=== PATIENT | male | born 1975 | race Caucasian/White ===

== ENCOUNTER 2017-03-01 06:05 | Inpatient (IN) ==
[2017-03-01] MEDS ORDERED: CeFAZolin Pre 2,000 MG/100 ML 2,000 MG/100 ML BAG IVPB ONE (06:29)
[2017-03-01] MEDS ORDERED: Vancomycin 1,250 MG in D5% in Water 250 ML IVPB ONE ×2 (06:29→13:00)
[2017-03-01] MEDS ORDERED: Lidocaine -MPF 1% 2 ML VIAL ID ONE (06:29)
[2017-03-01] MEDS ORDERED: Albuterol 2.5 MG/3 ML NEBULIZER ONE (06:37)
[2017-03-01] MEDS ORDERED: Albuterol 2.5 MG/3 ML NEBULIZER IH ONE (06:39)
[2017-03-01] MEDS ORDERED: *HR* Propofol 200 MG/20 ML VIAL IVP ONE (06:54)
[2017-03-01] MEDS ORDERED: *HR* Midazolam HCl 2 MG/2 ML VIAL ONE (06:55)
[2017-03-01] MEDS ORDERED: *HR* FentaNYL (PF) 100 MCG/2 ML VIAL ONE (06:55)
[2017-03-01] MEDS ORDERED: Lidocaine -MPF 4% 5 ML AMPUL ONE (07:14)
[2017-03-01] MEDS ORDERED: *HR* HYDROmorphone (PF) 1 MG/ML SYRINGE IVP PRN (07:16)
[2017-03-01] MEDS ORDERED: *HR* Labetalol 20 MG/4 ML SYRINGE IVP PRN (07:16)
[2017-03-01] MEDS ORDERED: Metoclopramide 10 MG/2 ML VIAL IVP ONE (07:16)
[2017-03-01] MEDS ORDERED: *HR* Promethazine 25 MG/ML VIAL IVP PRN (07:16)
[2017-03-01] MEDS ORDERED: Famotidine 20 MG/2 ML VIAL IVP ONE (07:16)
[2017-03-01] MEDS ORDERED: Acetaminophen IV 1,000 MG/100 ML INFUS..BTL IVPB ONE (07:17)
[2017-03-01] MEDS ORDERED: Gabapentin 300 MG CAPSULE PO STA (07:18)
[2017-03-01] MEDS ORDERED: Heparin 1,000 UNITS/500 mL NS 500 ML ONE (07:19)
[2017-03-01] MEDS ORDERED: Heparin 1,000 UNITS/500 mL NS 1,000 ML ONE (07:21)
[2017-03-01] MEDS ORDERED: Vancomycin 1,000 MG VIAL ONE (07:21)
--- NOTE | 2017-03-01 07:21 | Anesthesia Evaluation PreOp ---
Date of Encounter: 03/01/17 Time of Encounter: 07:11 - Past History Planned Operation: L-femoral endarterectomy, angioplasty, possible stent Cardiac History: CHF (hospitalization 07/22/2014), HTN (maintained on Carvedilol , Lisinopril), Hyperlipidemia (maintained on ATorvastatin), Other ( Claudication. ECHO 08/2014 LVEF= 50%. 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 HX Other Medical History: Renal (stage II CKD), Diabetes Type II (maintained on Lantus), GERD (maintained on Pantoprazole), Other (BPH maintained on Flomax) Anesthesia History: No Prior Anesthetic Complications, Past Anesthesia (Appy, B- knee scopes, oral surgery/dental extractions) Alcohol Use: none Drug use: none, other Medications and Allergies Aspirin 81 mg PO DAILY 03/15/15 [History] Carvedilol [Coreg] 3.125 mg PO BID 03/15/15 [History] Lisinopril [Zestril] 20 mg PO DAILY 03/15/15 [History] Acetaminophen [Tylenol] 1,000 mg PO Q6HR PRN #90 tablet 01/31/17 [Rx] Atorvastatin Calcium [Lipitor] 10 mg PO DAILY 01/31/17 [History] Cholecalciferol (Vitamin D3) [Vitamin D3] 5,000 unit PO DAILY 01/31/17 [History] Pantoprazole Sodium [Protonix] 40 mg PO DAILY 01/31/17 [History] Tamsulosin [Flomax] 0.4 mg PO DAILY 01/31/17 [History] Allergies nicotine patch Adverse Reaction (Uncoded 04/07/15 13:18) Rash - Meds/Allergy Pre-op Review Medications Reviewed: Yes Allergies Reviewed: Yes Beta Blockers on Current Med List: No Anesthesia Results - Labs Laboratory Tests 02/27/17 02/27/17 02/27/17 16:32 16:32 16:32 WBC Hgb Hct Plt Count PT 11.5 INR 1.1 APTT 35.4 Sodium 139 Potassium 4.0 Chloride 103 Carbon Dioxide 27 BUN 16 Creatinine 1.28 H Est GFR (Non-Af Amer) > 60 Glucose 159 H Est Mean Plasma Glucose 148 Hemoglobin A1c 6.8 H 02/27/17 16:32 WBC 8.0 Hgb 15.6 Hct 47.1 Plt Count 210 PT INR APTT Sodium Potassium Chloride Carbon Dioxide BUN Creatinine Est GFR (Non-Af Amer) Glucose Est Mean Plasma Glucose Hemoglobin A1c - Imaging EKG: image reviewed (84bpm SR) Anesthesia Exam O2 Sat Height 1.83 m Height 1.83 m Weight 85.275 kg Weight 85.275 kg O2 Sat by Pulse Oximetry 96 Vital Signs Temp Pulse Resp BP Pulse Ox 98.1 F 78 18 176/100 96 03/01/17 06:24 03/01/17 06:24 03/01/17 06:24 03/01/17 06:24 03/01/17 06:24 Height: 5'11" Weight: 190# NPO (# of Hours): MNOc - HEENT Pupil (Motor): Pupils equal, EOMI Mallampati: II Teeth: Edentulous (upper), Poor dentition (Prevalent gumline dz) Oral Opening: Greater than 3 - WRAP TURNER LOC: Oriented WRAP TURNER Motor: Normal RUE, Normal LUE, Normal RLE, Normal LLE, Normal Face WRAP TURNER Sensory: Normal: RUE, LUE, RLE, LLE, Face - Cardiac Rhythm: Regular Murmur: None - Pulmonary Breath Sounds: bilateral Clear Respiratory Effort: Symmetrical Anesthesia Assess/Plan ASA Score: 3 (PVD,Smoker, DM, HTN, Chol, Stage II CKD) Modified [place] Scale for Level of Consciousness: Cooperative, oriented, and tranquil Anesthetic Plan: General Monitoring Plan: Standard Monitors, A-Line Recovery Plan: PACU Anes Supervising Prov Stmt: Pt seen/evaluated, R&B Discussed, questions answered and consent obtained. Janice Dyson MD
[2017-03-01] MEDS: Ringers Solution, Lactated 1,000 ML IVC SCH ×2 (07:33→09:46)
--- NOTE | 2017-03-01 07:33 | History & Physical Report ---
Date of Encounter: 03/01/17 Time of Encounter: 07:25 24 Hour HP Update - Instructions Instructions: If the History and Physical is less than 30 days old and was completed prior to A.M. admission and or procedure and has NOT been updated on calendar day of procedure please complete this update prior to performing procedure. - Update Patient reports changes in Medical Condition: No Changes in examination, assessment, or condition: No Changes in Medication: No Preop tests/diagnostics Reviewed: Yes Surgery Remains Indicated: Yes Consent for Planned Operative Procedure(s) Verified: Yes - Pre-Operative Checklist Preoperative Checklist Indicated: Yes Prophylactic Antibiotic Ordered: Yes (vancomycin due to MRSA risk) Home Medications Include Beta Suresh: Yes Beta Suresh Taken Today (Day of Surgery): Yes Beta Suresh Taken Yesterday (Day Prior to Surgery): Yes Is VTE Prophylaxis Indicated?: Yes
[2017-03-01] MEDS ORDERED: EPHEDrine 50 MG/ML VIAL ONE (08:56)
[2017-03-01] MEDS ORDERED: *HR* Heparin 5,000 UNIT/ML VIAL ONE (09:22)
[2017-03-01] MEDS ORDERED: *HR* HYDROmorphone 2 MG/ML SYRINGE ONE (11:05)
--- NOTE | 2017-03-01 11:21 | Operative Note ---
Date of procedure: 03/01/17 Pre-op diagnosis: Peripheral vascular disease with disabling claudication Post-op diagnosis: same Procedure: 1. Left lower extremity angiogram. 2. Left superficial femoral and popliteal artery angioplasty with 4 x 60mm balloon. 3. Left Iliofemoral endarterectomy. 4. Left deep femoral artery endarterectomy. Complications: None Anesthesia: UMM Surgeon: Robbie Bagley Estimated blood loss (cc): 100 Specimen: Left lower extremity plaque Condition: stable Disposition: PACU Procedure in Detail: Indications: The patient is a 41 year old male with severe disabling claudication at short distances. He was found to have severe peripheral vascular disease with multiple iliac, femoral and popliteal stenoses. Due to the extent of his disease and the severity of his symptoms, revascularization was recommended for relief. Procedure: The patient was identified in the preoperative area. The risks, benefits, and alternatives of procedure were discussed and all questions were answered. He was taken to the operating room and placed in supine position on the operating room table. After the induction of general endotracheal anesthesia, he was cleaned and draped in normal sterile fashion. An oblique incision was made along the left groin sharply. Hemostasis was obtained with electrocautery. Through a process of blunt and sharp electrocautery dissection , the skin and subcutaneous tissues were incised and the mid to distal external iliac artery was dissected underneath the inguinal ligament and a vessel loop was passed around it. The common femoral artery, deep femoral artery and superficial femoral artery were dissected circumferentially and surrounded with vessel loops. The patient received 5000 units of heparin intravenously to maintain adequate anticoagulation. After waiting for the heparin to circulate, the vessels were occluded. A longitudinal arteriotomy was made sharply into the common femoral artery. It was extended under the inguinal ligament into the external iliac artery proximally. It was then extended into the superficial femoral artery distally. Using a dental freer, an endarterectomy was performed from the external iliac artery through the common femoral artery. The plaque was irregular and firm. Proximally, the lumen became patent without significant stenosis. The plaque was excised sharply and no elevated flaps were noted at the endpoint. Distally, the plaque was excised at the deep femoral artery. Release of the vessel loop on the deep femoral artery revealed minimal retrograde flow. Using a dental freer, a deep femoral endarterectomy was performed. The plaque was circumferentially excised from the deep femoral artery using an eversion technique. Release of the loop revealed significant retrograde flow. The lumen was irrigated with heparinzed saline. The deep femoral artery vessel loop was thentightened. A 6 chadian sheath was then advanced over a wire into the superficial femoral artery. An angiogram revealed a left superficial femoral and popliteal artery stenosis measuring up to 90%. Angioplasty was performed with a 4 x 60mm balloon. Multiple inflations were required. A completion angiogram revealed no hemodynamically significant residual stenosis. The vessel was flushed with heparinized saline, the sheath, wire and balloon were removed and the vessel loop was tightened. A bovine pericardial patch was cut to fit the defects in the external iliac, common femoral and superficial femoral arteries. The patch was sutured in place with running 6-0 Prolene. Prior to completing the patch anastomosis, each vessel was flushed individually, then reoccluded. Heparinized saline was infused into the lumen. The patch was completed and flow was restored. Thrombin and Gelfoam were used to aid in hemostasis. Polyphasic signal was noted distal to the distal end of the patch as well as the posterior tibial artery. Wound was irrigated with antibiotic-containing saline. Platelet-rich and platelet-poor plasma were infused into the wound. The wounds were reapproximated with layer of 2-0 Vicryl followed by two layers of 3-0 and Vicryl 3-0 Monocryl in the subcuticular layer. Sterile dressings were applied. The patient was extubated and taken to recovery room in stable condition.
--- NOTE | 2017-03-01 12:00 | Anesthesia Evaluation Post Op ---
Date of Encounter: 03/01/17 Time of Encounter: 11:55 - Lungs Lungs: Clear Ascult./Percussion - Airway Airway: Non-obstructed - Cardiovascular Regular Rate, Baseline Rhythm - Mental Status Mental Status: Alert & Oriented, Answers Appropriately - Pain Pain Scale: 1 - Nausea Vomiting Nausea Vomiting: Not Present - Hydration Hydration: Tolerates oral liquids, Ice chips, Dobson catheter - Discharge PostOp Status: Transfer Patient to floor
[2017-03-01] MEDS ORDERED: *HR* OxyCODONE Immed Rel 5 MG TABLET PO PRN (12:08)
[2017-03-01] MEDS ORDERED: Ondansetron 4 MG/2 ML VIAL IVP PRN (12:08)
[2017-03-01] MEDS ORDERED: Naloxone 0.4 MG/ML INJ IVP PRN (12:08)
[2017-03-01] MEDS ORDERED: Acetaminophen 325 MG TABLET PO PRN (12:08)
[2017-03-01] MEDS ORDERED: *HR* Morphine 2 MG/ML SYRINGE IVP PRN (12:08)
[2017-03-01] MEDS: *HR* HYDROcodone/Acet 5/325 mg TABLET PO PRN ×2 (12:51→23:50)
[2017-03-01] MEDS: *HR* Metoprolol 5 MG/5 ML VIAL IVP SCH ×3 (13:47→23:50)
[2017-03-01] MEDS: ceFAZolin 2,000 MG in D5% in Water 100 ML IVPB SCH ×2 (15:32→23:51)
[2017-03-01] MEDS: *HR* Labetalol 20 MG/4 ML SYRINGE IVP PRN (18:41)
[2017-03-01] MEDS ORDERED: Lisinopril 20 MG TABLET PO SCH (21:00)
[2017-03-01] MEDS ORDERED: Aspirin 81 MG TAB.CHEW PO SCH (21:00)
[2017-03-01] MEDS ORDERED: Cholecalciferol (D-3) 1,000 UNIT TABLET PO SCH (21:00)
[2017-03-02 05:26] LABS: Basophils % 0.2 %; Eosinophils # 0.1 K/mcL (0.0-0.6); Eosinophils % 0.7 %; Hematocrit 47.5 % (37.5-50.1); Hemoglobin 15.7 g/dL (12.9-16.9); Immature Granulocytes % 0.4 % (0-4); Lymphocytes # 2.3 K/mcL (0.6-4.6); Lymphocytes % 16.4 %; Mean Corpuscular HGB Conc 33.1 g/dL (31.6-35.5); Mean Corpuscular Hemoglobin 28.2 pg (28.0-33.3); Mean Corpuscular Volume 85.3 fL (83.0-100.0); Mean Platelet Volume 9.9 fL (9.4-12.4); Monocytes # 0.7 K/mcL (0.0-1.3); Monocytes % 4.8 %; Neutrophils # 10.7 K/mcL (1.6-8.9); Platelet Count 222 K/mcL (140-400); Red Blood Count 5.57 M/mcL (4.19-5.50); Red Cell Distribution Width 12.8 % (11.5-14.5); Segmented Neutrophils % 77.5 %
[2017-03-02 05:34] LABS: BUN/Creatinine Ratio 12 (6-26); Blood Urea Nitrogen 15 mg/dL (8-26); Calcium 9.9 mg/dL (8.6-10.8); Carbon Dioxide 28 mEq/L (19-29); Chloride 101 mEq/L (98-109); Glucose 118 mg/dL (70-99); Osmolality,Calculated 288 (280-300); Potassium 4.4 mEq/L (3.5-4.5); Sodium 138 mEq/L (136-145); eGFR For African Americans > 60 (> 60); eGFR For Non-African Americans > 60 (> 60)
[2017-03-02] MEDS ORDERED: *HR* Heparin 5,000 UNIT/ML VIAL SQ SCH ×2 (06:00)
[2017-03-02] MEDS: *HR* Metoprolol 5 MG/5 ML VIAL IVP SCH (06:06)
--- NOTE | 2017-03-02 06:29 | Discharge Summary ---
Date of Encounter: 03/02/17 Time of Encounter: 09:00 - Discharge Diagnosis (1) Atherosclerosis of [place] arteries of extremities with intermittent claudication, bilateral legs Priority: Primary Status: Chronic Comments: The patient is post operative day #1 after a left iliac and femoral endarterectomy and left superficial femoral and popliteal artery angioplasty. He is feeling well. He has palpable pedal pulses on the left. He will be discharged today. He will follow-up in clinic for further evaluation. (2) Tobacco abuse Priority: Secondary Status: Chronic (3) Mixed hyperlipidemia Priority: Secondary Status: Chronic (4) Essential hypertension Priority: Secondary Status: Chronic (5) Chronic kidney disease, stage III (moderate) Priority: Secondary Status: Chronic - Discharge Medications Prescriptions: OxyCODONE/APAP 5/325 [Percocet 5/325 MG] 1 each PO Q4HR PRN #25 tablet PRN Reason: postoperative pain Home Medications: Aspirin 81 mg PO HS 03/15/15 [History] Carvedilol [Coreg] 3.125 mg PO BID 03/15/15 [History] Cholecalciferol (Vitamin D3) [Vitamin D3] 5,000 unit PO HS 01/31/17 [History] Pantoprazole Sodium [Protonix] 40 mg PO HS 01/31/17 [History] Tamsulosin [Flomax] 0.4 mg PO HS 01/31/17 [History] Atorvastatin [Lipitor] 10 mg PO HS 03/01/17 [History] Lisinopril [Zestril] 20 mg PO HS 03/01/17 [History] OxyCODONE/APAP 5/325 [Percocet 5/325 MG] 1 each PO Q4HR PRN #25 tablet 03/02/17 [Rx] Allergies/Adverse Reactions: No Known Allergies Allergy (Verified 03/06/17 18:31) Date of admission: 03/01/17 12:33 Primary care physician: Benjamin Orta Jr, MD Procedure(s) Performed: Left lower extremity endarterectomy and angioplasty. Discharging clinician: Robbie Bagley Anticipated date of discharge: 03/02/17 - Patient Status Disposition: Home, Self-Care Condition: Good Functional capacity at discharge: independent ambulation Overall status at discharge: patient is back to baseline - Discharge Instructions Instructions: Oxycodone/Acetaminophen (By mouth), How to Stop Smoking (DC), Peripheral Vascular Angioplasty (DC) Follow Up With: Robbie Bagley MD [Partnered Physician] - 04/10/17 1:50 pm Benjamin Orta Jr, MD [Primary Care Provider] - 03/05/17 3:30 pm Additional Instructions: MAY REMOVE BANDAGE AND SHOWER ON 03/03/17. WASH WOUND GENTLY AND PAT TO DRY. APPLY DRY GAUZE TO WOUND DAILY FOR 7 DAYS. NO TUB BATHS OR SWIMMING UNTIL 03/27/17. CALL DR. BAGLEY AT [phone] WITH QUESTIONS OR CONCERNS. RISK FACTORS: STOP SMOKING: If you smoke, STOP. Smoking or tobacco use significantly increases your risk of heart disease because nicotine causes the arteries to narrow or constrict. It also causes fats to stick to the artery. Your chances of having a heart attack are greatly increased if you continue to smoke. For more information, call the education line for smoking cessation 4-246-ZHJVCSF EAT A LOW FAT/CHOLESTEROL/SODIUM DIET: This diet may help reduce your chances of having a heart attack. LIFTING: Avoid lifting anything more than 10 pounds for 5-7 days Prior to straining, laughing, sneezing and/or coughing, apply manual pressure directly over insertion site. ACTIVITY: You may walk or climb stairs as tolerated You can resume sexual activity as tolerated In general, you are encouraged to engage in a minimum of 30 minutes or more of moderate intensity physical activity, such as brisk walking, daily or at least 3 -4 times weekly BATHING Do not submerge the site into water (bath tub, hot tub, swimming pool) for 1 week. This can be a source for infection into the blood stream. You may shower after 24 hours SITE CARE: Keep the site clean and dry. Clean gently and pat dry. Return to work as instructed per your physician Resume driving as instructed per physician Keep all scheduled follow up appointments Resume medications as instructed Take your meds as directed. STROKE (CVA) Risk factors for a stroke are: Age, cigarette smoking, diabetes, excessive alcohol consumption, family history, high blood pressure, overweight, physical inactivity, prior stroke, heart attack, diagnosis of carotid artery stenosis or other artery disease. Warning signs: Sudden numbness or weakness of the face, arm or leg; especially on one side of the body, sudden confusion, trouble speaking or understanding, sudden trouble seeing in one or both eyes, sudden trouble walking, dizziness, loss of balance or coordination, sudden severe headache with no cause. Call 911 or go to the Emergency Room. BLEEDING: Although the risk of bleeding is minimal, it can happen. If you have any bleeding from the site, apply firm pressure above the puncture site for 10-15 minutes. If the bleeding does not stop, continue manual pressure and call 911 Contact your physician if: You develop a fever greater than 101 degrees Fahrenheit Your site becomes reddened or has any drainage You have an increase in pain or burning at the site or if a large knot forms at the site. If you experience chest pain, shortness of breath, dizziness, or extreme tiredness, stop the activity and rest. Please notify your physicians office if you experience any of these symptoms and they are not relieved by rest please call 911! coninue to use the incentive spirometer at least 6 times daily - Diet and Activity Activity: increase activity as tolerated Diet: advance to your usual diet - Hospital Course Hospital course: Mr. Tang is a 41 year old male with hypertension, hyperlipidemia, chronic kidney disease and tobacco abuse who was found to have severe disabling claudication. He was admitted on 03/01/17 and underwent a left lower extremity endartectomy and angioplasty. He tolerated the procedure well and was discharged on postoperative day #1 in stable condition without complications. Time spent discussing smoking cessation with patient: 3 to 10 minutes - Time Spent with Patient Total time spent providing and/or coordinating discharge services: Exam Vital Signs, Last 4 Hours Temp Pulse Resp Pulse Ox 03/02/17 05:19 97.7 F 80 17 98 General: Present: Conversant, No Apparent Distress HEENT: Present: Pupils equal Cardiac: Present: Reg Rate and Rhythm Lungs: Present: Normal Breath Sounds Neuro: Present: Alert and responsive, No focal deficits noted Abdomen: Present: Soft, Non-tender Vascular: Present: Pulse, diminished (right), Pulse, normal (left), Surgical incisions (clean, dry and intact without erythema or drainage) - VTE Documentation of Mechanical Device: Intermittent pneumatic compression device
[2017-03-02] MEDS: *HR* Labetalol 20 MG/4 ML SYRINGE IVP PRN (10:02)
[2017-03-02 10:06] VITALS: BP 157/94
== END 2017-03-02 11:42 | disposition home or self-care (01) | DRG 169 ==
LOC: SAMDAY 06:05 → 2NNU 12:33
PROVIDERS: ADMIT Surgery; ATTEND Surgery

== ENCOUNTER 2019-03-20 06:29 | Observation (INO) ==
[2019-03-20] MEDS ORDERED: CeFAZolin Syr 2,000MG/20 ML 2,000 MG/20 ML SYRINGE IVPB ONE (07:02)
[2019-03-20] MEDS ORDERED: Albuterol 2.5 MG/3 ML NEBULIZER IH ONE ×2 (07:02→07:06)
[2019-03-20] MEDS ORDERED: Famotidine 20 MG/2 ML VIAL IVP ONE (07:06)
[2019-03-20] MEDS ORDERED: *HR* HYDROmorphone (PF) 1 MG/ML SYRINGE IVP PRN (07:06)
[2019-03-20] MEDS ORDERED: *HR* OxyCODONE Immed Rel 5 MG TABLET PO PRN ×3 (07:06→11:48)
[2019-03-20] MEDS ORDERED: Ondansetron 4 MG/2 ML VIAL IVP ONE (07:06)
[2019-03-20] MEDS ORDERED: *HR* Promethazine 25 MG/ML VIAL IVP PRN (07:06)
[2019-03-20] MEDS ORDERED: Acetaminophen IV 1,000 MG/100 ML INFUS..BTL IVPB ONE (07:06)
[2019-03-20] MEDS ORDERED: *HR* Labetalol 20 MG/4 ML SYRINGE IVP PRN ×2 (07:06→11:48)
--- NOTE | 2019-03-20 07:08 | Anesthesia Evaluation PreOp ---
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 Other Medical History: Renal (KD stage 3), Diabetes Type II, GERD Anesthesia History: No Prior Anesthetic Complications, Past Anesthesia (previous grade 1 view, appy, knee scope, L fem endarterectomy) Alcohol Use: none Drug use: marijuana Medications and Allergies Acarbose [Precose] 25 mg PO TIDWM 03/20/19 [History] Amitriptyline [Elavil] 10 mg PO HS 03/20/19 [History] Atorvastatin [Lipitor] 40 mg PO DAILY 03/20/19 [History] Carvedilol [Coreg] 6.25 mg PO BID 03/20/19 [History] Cholecalciferol (D-3) [Vitamin D] 5,000 unit PO DAILY 03/20/19 [History] Clopidogrel [Plavix] 75 mg PO DAILY 03/20/19 [History] Dulaglutide [Trulicity] 1.5 mg SQ WE 03/20/19 [History] Glimepiride [Amaryl] 4 mg PO BID 03/20/19 [History] Lisinopril [Zestril] 20 mg PO DAILY 03/20/19 [History] Pantoprazole Sodium [Protonix] 40 mg PO DAILY 03/20/19 [History] Tamsulosin HCl [Flomax] 0.4 mg PO DAILY 03/20/19 [History] Tizanidine HCl 4 mg PO TID PRN 03/20/19 [History] Allergy/AdvReac Type Severity Reaction Status Date / Time nicotine Allergy Swelling Verified 03/20/19 06:59 of Lip/Tongue/Throat - Meds/Allergy Pre-op Review Medications Reviewed: Yes Allergies Reviewed: Yes Beta Blockers on Current Med List: Yes (carvedilol) If Beta Blockers taken, Date/Time (Last Dose taken): 329 Anesthesia Results - Labs Laboratory Tests 03/03/19 03/03/19 03/03/19 17:37 17:37 17:37 WBC Hgb Hct Plt Count PT 10.9 INR 1.0 APTT 33.5 Sodium 137 Potassium 4.5 Chloride 102 Carbon Dioxide 26 BUN 23 H Creatinine 1.62 H Est GFR (Non-Af Amer) 46 L Hemoglobin A1c 9.5 H 03/03/19 17:37 WBC 7.3 Hgb 16.2 Hct 48.4 Plt Count 202 PT INR APTT Sodium Potassium Chloride Carbon Dioxide BUN Creatinine Est GFR (Non-Af Amer) Hemoglobin A1c - Imaging EKG: report reviewed Additional studies: stress 03/2018 Impression: Perfusion study is negative for ischemia or infarct. Reversible mild perfusion defect in basal/mid inferoseptal wall is likely an artifact. Stress LVEF 58 %. No ischemic stress ECG findings. No abnormal hemodynamic changes during stress test. Anesthesia Exam Vital Signs/O2 Sat/Glucose, Most Recent Temp Pulse Resp BP Pulse Ox 97.8 F 90 18 144/94 99 03/20/19 06:55 03/20/19 06:55 03/20/19 06:55 03/20/19 06:55 03/20/19 06:55 Blood Glucose* 157 Weight: 97 kg NPO (# of Hours): > 8 hr - HEENT Pupil (Motor): Pupils equal Mallampati: II Teeth: Normal Oral Opening: Greater than 3 - FILM PRODUCER LOC: Oriented - Cardiac Rhythm: Regular Murmur: None - Pulmonary Breath Sounds: bilateral Clear Respiratory Effort: Symmetrical Anesthesia Assess/Plan ASA Score: 3 Level of consciousness: Cooperative, Oriented Anesthetic Plan: General Monitoring Plan: Standard Monitors, A-Line Recovery Plan: PACU
[2019-03-20] MEDS ORDERED: Ringers Solution, Lactated 1,000 ML IVC SCH (07:15)
[2019-03-20] MEDS ORDERED: Heparin 1,000 UNITS/500 mL 1,000 ML ONE (07:16)
[2019-03-20] MEDS ORDERED: Isovue-300 150 ML INFUS..BTL ONE (07:17)
[2019-03-20] MEDS ORDERED: Calcium Gluconate 1,000 MG/10 ML VIAL ONE (07:25)
--- NOTE | 2019-03-20 07:40 | History & Physical Report ---
Date of Encounter: 03/20/19 Time of Encounter: 07:28 24 Hour HP Update - Instructions Instructions: If the History and Physical is less than 30 days old and was completed prior to A.M. admission and or procedure and has NOT been updated on calendar day of procedure please complete this update prior to performing procedure. - Update Patient reports changes in Medical Condition: No Changes in examination, assessment, or condition: No Changes in Medication: No Preop tests/diagnostics Reviewed: Yes Surgery Remains Indicated: Yes Consent for Planned Operative Procedure(s) Verified: Yes - Pre-Operative Checklist Preoperative Checklist Indicated: Yes Prophylactic Antibiotic Ordered: Yes (vancomycin due to risk of MRSA) Home Medications Include Beta Suresh: Yes Beta Suresh Taken Today (Day of Surgery): Yes Beta Suresh Taken Yesterday (Day Prior to Surgery): Yes Is VTE Prophylaxis Indicated?: Yes
[2019-03-20] MEDS ORDERED: Vancomycin 1,000 MG, Sodium Chloride IRRigation 1,000 ML IR ONE (07:45)
[2019-03-20] MEDS ORDERED: *HR* Vasopressin 20 UNIT/ML VIAL ONE (08:13)
[2019-03-20] MEDS ORDERED: Albumin Human 5% 25.0 GM/500 ML VIAL ONE (08:43)
[2019-03-20] MEDS ORDERED: EPHEDrine 50 MG/ML VIAL ONE (08:58)
[2019-03-20] MEDS ORDERED: Aspirin 81 MG TAB.CHEW PO SCH (09:00)
[2019-03-20] MEDS ORDERED: Lidocaine -MPF 4% 5 ML AMPUL ONE (10:03)
[2019-03-20] MEDS ORDERED: *HR* Phenylephrine 10 MG/ML VIAL ONE (10:03)
[2019-03-20] MEDS ORDERED: *HR* Midazolam HCl 2 MG/2 ML VIAL ONE (10:03)
[2019-03-20] MEDS ORDERED: *HR* Rocuronium Bromide 50 MG/5 ML VIAL ONE (10:03)
[2019-03-20] MEDS ORDERED: *HR* Succinylcholine 200 MG/10 ML VIAL IVP ONE (10:03)
[2019-03-20] MEDS ORDERED: *HR* Remifentanil 2 MG VIAL IVP ONE (10:03)
[2019-03-20] MEDS ORDERED: *HR* FentaNYL (PF) 100 MCG/2 ML VIAL ONE (10:03)
[2019-03-20] MEDS ORDERED: Lidocaine -MPF 2% 2 ML VIAL ONE (10:03)
[2019-03-20] MEDS ORDERED: *HR* Heparin 5,000 UNIT/ML VIAL ONE (10:03)
[2019-03-20] MEDS ORDERED: *HR* Propofol 200 MG/20 ML VIAL IVP ONE (10:03)
[2019-03-20] MEDS ORDERED: Ondansetron 4 MG/2 ML VIAL ONE ×2 (10:23→10:24)
[2019-03-20] MEDS ORDERED: Neostigmine Methylsulfate 3 MG/3 ML SYRINGE ONE (10:24)
--- NOTE | 2019-03-20 11:02 | Operative Note ---
Date of procedure: 03/20/19 Pre-op diagnosis: Peripheral vascular disease with disabling claudication Post-op diagnosis: same Procedure: 1. Abdominal aortogram. 2. Left iliac artery thrombectomy with 5-Maldivian Nathalie over the wire embolectomy catheter. 3. Left iliofemoral endarterectomy. Complications: None Anesthesia: GETA Surgeon: Robbie Bagley Was there an recruitment and outreach assistant present: No Estimated blood loss (cc): 50 Specimen: None Condition: stable Disposition: PACU Procedure in Detail: Indications: The patient is a 44-year-old male with a history of severe peripheral vascular disease with right iliac artery occlusion. The patient has recently undergone a femoral to femoral artery bypass graft. The patient reported that he developed progressive disabling bilateral lower surgery claudication. He is found have severe left iliac disease. Revascularization was recommended to reduce his symptoms. Procedure: The patient was identified in the preoperative area. The risks, benefits and alternatives were discussed with him and all questions were answered. The patient was then taken to the operating room and placed in the supine position on the operative table. After the induction of general endotracheal anesthesia his previous left groin scar was opened sharply. Hemostasis was obtained with electrocautery. Through a process of blunt, sharp and electrocautery dissection, the left external iliac, femoral vessels and left limb of the bypass graft were dissected circumferentially and surrounded with vessel loops. The patient received 5000 heparin intravenously. After allowing the heparin to circulate a longitudinal incision was made into the graft. A wire was then passed into the aorta and a 6-Maldivian sheath was advanced over the wire. Anterior was performed to reveal distal iliac artery occlusion. He is a Nathalie over the wire embolectomy catheter and embolectomy was performed. Removal of the thrombus significantly improved inflow was noted. This was noted to also have intimal hyperplasia arising from the distal external iliac artery exiting into the common femoral artery. The wire and sheath were removed. The distal external iliac artery was occluded. Using a dental freer, an iliofemoral endarterectomy is performed. Endpoints were inspected and no elevated flaps were noted. Upon release of the external iliac clamp strong pulsatile antegrade flow was noted. Retrograde flow was noted through the graft as well. Retrograde flow was also noted through the femoral vessels. The lumen was irrigated with heparinized saline. The graftotomy was reapproximated with a running 6-0 Prolene. Prior to completing the closure the vessels were flushed and heparinized was infused into the lumen. Flow was restored after completing the arteriotomy closure. Polyphasic signals were noted distal to the graft as well as in the graft. The wound was irrigated with heparinized saline. Thrombin and Gelfoam were used to aid in hemostasis. Meticulous hemostasis was obtained throughout the wound with electrocautery. Platelet rich and platelet poor plasma was infused into the wound. The wound was reapproximated with layers of 2 and 3-0 Vicryl suture. Skin was reapproximated with a running 3-0 Monocryl suture. A sterile dressing was applied. The patient was extubated and taken to recovery room in stable condition.
--- NOTE | 2019-03-20 11:23 | Anesthesia Evaluation Post Op ---
Date of Encounter: 03/20/19 Time of Encounter: 11:22 - Vital Signs Vital Signs: Vital Signs/O2 Sat, Most Current Temp Pulse Resp BP Pulse Ox 98.4 F 78 16 144/81 93 03/20/19 11:15 03/20/19 11:15 03/20/19 11:15 03/20/19 11:15 03/20/19 11:15 - Lungs Lungs: Clear Ascult./Percussion - Airway Airway: Non-obstructed - Cardiovascular Regular Rate, Baseline Rhythm - Mental Status Mental Status: Alert & Oriented, Answers Appropriately - Pain Pain Scale: 3 - Nausea Vomiting Nausea Vomiting: Not Present - Hydration Hydration: Ice chips - Discharge PostOp Status: Transfer Patient to floor
[2019-03-20] MEDS ORDERED: 0.9 % Sodium Chloride 1,000 ML IVC SCH (11:48)
[2019-03-20] MEDS ORDERED: tiZANidine 4 MG TABLET PO PRN (11:48)
[2019-03-20] MEDS ORDERED: Naloxone 0.4 MG/ML INJ IVP PRN (11:48)
[2019-03-20] MEDS ORDERED: Dextrose Gel 15 GM/37.5 ML TUBE PO PRN ×2 (11:48)
[2019-03-20] MEDS ORDERED: Acetaminophen 325 MG TABLET PO PRN (11:48)
[2019-03-20] MEDS ORDERED: D5% in Water 1,000 ML IVC PRN (11:48)
[2019-03-20] MEDS ORDERED: *HR* Dextrose 50 % in Water (Syg) 50 ML SYRINGE IVP PRN (11:48)
[2019-03-20] MEDS ORDERED: Ondansetron 4 MG/2 ML VIAL IVP PRN (11:48)
[2019-03-20] MEDS ORDERED: *HR* HYDROcodone/Acet 5/325 mg TABLET PO PRN ×2 (11:48)
[2019-03-20] MEDS: *HR* Metoprolol 5 MG/5 ML VIAL IVP SCH ×2 (12:27→17:36)
[2019-03-20] MEDS: Acetaminophen 325 MG TABLET PO PRN (13:39)
--- NOTE | 2019-03-20 16:50 | Event Note ---
Date of Encounter: 03/20/19 Time of Encounter: 16:45 The patient was seen and examined. He is comfortable at this time. He has had episodes of hypertension requiring intravenous antihypertensives. He has no hematomas. He has biphasic pedal signals. His compartments are soft. Patient will need observation overnight as well as monitoring his blood pressure and treating hypertension as it occurs. He recently undergo lab for studies in the morning. He will also require intravenous antihypertensives for his hypertension as needed.
[2019-03-20] MEDS ORDERED: Insulin LISPRO 300 UNITS/3 ML VIAL SQ SCH (21:00)
[2019-03-21] MEDS: *HR* Metoprolol 5 MG/5 ML VIAL IVP SCH ×2 (00:03→03:52)
[2019-03-21] MEDS: Acetaminophen 325 MG TABLET PO PRN (00:03)
[2019-03-21 04:06] LABS: Basophils % 0.3 %; Eosinophils # 0.2 K/mcL (0.0-0.6); Eosinophils % 2.4 %; Hematocrit 41.1 % (37.5-50.1); Hemoglobin 14.1 g/dL (12.9-16.9); Immature Granulocytes % 0.2 % (0-4); Lymphocytes # 1.3 K/mcL (0.6-4.6); Lymphocytes % 14.2 %; Mean Corpuscular HGB Conc 34.3 g/dL (31.6-35.5); Mean Corpuscular Hemoglobin 29.9 pg (28.0-33.3); Mean Corpuscular Volume 87.1 fL (83.0-100.0); Mean Platelet Volume 9.9 fL (9.4-12.4); Monocytes # 0.5 K/mcL (0.0-1.3); Monocytes % 5.8 %; Neutrophils # 6.9 K/mcL (1.6-8.9); Platelet Count 154 K/mcL (140-400); Red Blood Count 4.72 M/mcL (4.19-5.50); Red Cell Distribution Width 11.9 % (11.5-14.5); Segmented Neutrophils % 77.1 %; White Blood Count 8.9 K/mcL (4.3-11.1)
[2019-03-21 04:27] LABS: BUN/Creatinine Ratio 9 (6-26); Blood Urea Nitrogen 13 mg/dL (6-20); Calcium 8.7 mg/dL (8.6-10.3); Carbon Dioxide 23 mEq/L (23-29); Chloride 105 mEq/L (98-107); Glucose 107 mg/dL (70-105); Osmolality,Calculated 283 (280-300); Potassium 3.7 mEq/L (3.5-5.1); Sodium 136 mEq/L (136-145); eGFR For African Americans > 60 (> 60); eGFR For Non-African Americans 53 (> 60)
[2019-03-21] MEDS ORDERED: *HR* Heparin 5,000 UNIT/ML VIAL SQ SCH (06:00)
--- NOTE | 2019-03-21 06:28 | Discharge Summary ---
Date of Encounter: 03/21/19 Time of Encounter: 07:40 - Discharge Diagnosis (1) Atherosclerosis of [place] arteries of extremities with intermittent claudication, bilateral legs Priority: Primary Status: Chronic Comments: The patient is postoperative day #1 after left iliac thrombectomy and left iliofemoral endarterectomy. His biphasic pedal signals bilaterally. His incision is healing. His compartments are soft. He will be discharged today. (2) Diabetes mellitus with peripheral angiopathy without gangrene Priority: Secondary Status: Chronic Qualifiers: Diabetes mellitus type: type 2 Diabetes mellitus detention insulin use: without detention use Qualified Code(s): E11.51 - Type 2 diabetes mellitus with diabetic peripheral angiopathy without gangrene (3) Mixed hyperlipidemia Priority: Secondary Status: Chronic Comments: The patient was counseled regarding atherosclerotic risk factor reduction. (4) Essential hypertension Priority: Secondary Status: Chronic (5) Chronic kidney disease, stage 3 Priority: Secondary Status: Chronic - Hospital Course Hospital course: Mr. Tang is a 43 year old male with history of peripheral vascular disease with disabling claudication. Patient previously underwent a femoral-femoral artery bypass graft. He presented with progressive disabling claudication of the bilateral lower extremity. He was admitted and taken to the operating room and underwent a left neck thrombectomy and left iliofemoral endarterectomy. With her daily for 1 he reported significant improvement in his symptoms. His incision was healing well. He was discharged in stable condition on postoperative day #1 without complications. - Time Spent with Patient Total time spent providing and/or coordinating discharge services: - Discharge Medications Prescriptions: New OxyCODONE/APAP 5/325 [Percocet 5/325 MG] 1 each PO Q6HR PRN 5 Days #20 tablet PRN Reason: Postoperative pain Continued Amitriptyline [Elavil] 10 mg PO HS Carvedilol [Coreg] 6.25 mg PO BID Clopidogrel [Plavix] 75 mg PO DAILY Glimepiride [Amaryl] 4 mg PO BID Tamsulosin HCl [Flomax] 0.4 mg PO DAILY Lisinopril [Zestril] 20 mg PO DAILY Cholecalciferol (D-3) [Vitamin D] 5,000 unit PO DAILY Atorvastatin [Lipitor] 40 mg PO DAILY Pantoprazole Sodium [Protonix] 40 mg PO DAILY Acarbose [Precose] 25 mg PO TIDWM Tizanidine HCl 4 mg PO TID PRN PRN Reason: Muscle Spasm Dulaglutide [Trulicity] 1.5 mg SQ WE Home Medications: Acarbose [Precose] 25 mg PO TIDWM 03/20/19 [History] Amitriptyline [Elavil] 10 mg PO HS 03/20/19 [History] Atorvastatin [Lipitor] 40 mg PO DAILY 03/20/19 [History] Carvedilol [Coreg] 6.25 mg PO BID 03/20/19 [History] Cholecalciferol (D-3) [Vitamin D] 5,000 unit PO DAILY 03/20/19 [History] Clopidogrel [Plavix] 75 mg PO DAILY 03/20/19 [History] Dulaglutide [Trulicity] 1.5 mg SQ WE 03/20/19 [History] Glimepiride [Amaryl] 4 mg PO BID 03/20/19 [History] Lisinopril [Zestril] 20 mg PO DAILY 03/20/19 [History] Pantoprazole Sodium [Protonix] 40 mg PO DAILY 03/20/19 [History] Tamsulosin HCl [Flomax] 0.4 mg PO DAILY 03/20/19 [History] Tizanidine HCl 4 mg PO TID PRN 03/20/19 [History] OxyCODONE/APAP 5/325 [Percocet 5/325 MG] 1 each PO Q6HR PRN 5 Days #20 tablet 03/21/19 [Rx] Allergies/Adverse Reactions: Allergy/AdvReac Type Severity Reaction Status Date / Time nicotine Allergy Swelling Verified 03/20/19 06:59 of Lip/Tongue/Throat Date of admission: 03/20/19 22:20 Primary care physician: Benjamin Orta Jr, MD Procedure(s) Performed: Left iliac thrombectomy, left iliofemoral endarterectomy. Discharging clinician: Robbie Bagley Anticipated date of discharge: 03/21/19 Exam Vital Signs, Last 4 Hours Temp Pulse Resp BP Pulse Ox 03/21/19 03:50 98.2 F 93 16 117/70 95 General: Present: Conversant, No Apparent Distress HEENT: Present: Pupils equal Cardiac: Present: Reg Rate and Rhythm Lungs: Present: Normal Breath Sounds Neuro: Present: Alert and responsive, No focal deficits noted Abdomen: Present: Soft Vascular: Present: Normal capillary refill, Surgical incisions (Incision clean, dry and intact without erythema or drainage, no hematoma). Absent: Cyanosis, Edema - Patient Status Disposition: Home, Self-Care Condition: Good Functional capacity at discharge: independent ambulation Overall status at discharge: patient is back to baseline - Discharge Instructions Instructions: Hydrocodone/Acetaminophen (By mouth), Femoropopliteal Bypass (DC), Diabetes Mellitus Type 2 in Adults (DC), Peripheral Vascular Disorders (DC), Chronic Hypertension (DC), Anemia (GEN) Follow Up With: Robbie Bagley MD [Partnered Physician] - 04/21/19 9:30 am Benjamin Orta Jr, MD [Primary Care Provider] - 04/02/19 11:00 am Additional Instructions: May remove bandage and shower on 03/22/2019. Wash wound gently with soap and water only and pat to dry. Apply dry gauze to wound daily for 7 days. No tub baths or swimming until 04/15/2019. Call Dr. Bagley at [phone] with questions or concerns. - Diet and Activity Activity: increase activity as tolerated Diet: diabetic diet
[2019-03-21 07:20] VITALS: BP 142/92
[2019-03-21] MEDS ORDERED: Cholecalciferol (D-3) 1,000 UNIT (25MCG) TABLET PO SCH (09:00)
[2019-03-21] MEDS ORDERED: Aspirin 81 MG TAB.CHEW PO SCH (09:00)
[2019-03-21] MEDS ORDERED: Lisinopril 20 MG TABLET PO SCH (09:00)
== END 2019-03-21 10:06 | disposition home or self-care (01) ==
LOC: 2NNU 06:29 → SAMDAY 06:29 → 2NNU 11:45
PROVIDERS: ADMIT Surgery; ATTEND Surgery